=== PATIENT | female | born 1935 | race Caucasian/White ===

== ENCOUNTER 2024-09-25 05:23 | Emergency (ER) | payer OTHER, SELFPAY ==
[2024-09-25 05:25] VITALS: BP 172/93
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
[2024-09-25] MEDS: MOTRIN 400 MG PO (06:34)
[2024-09-25 06:47] VITALS: BMI 28.7
[2024-09-25 07:12] LABS: Urine Albumin Trace (Neg - Trace); Urine Bilirubin Negative (Negative); Urine Character Clear (Clear); Urine Color Yellow; Urine Glucose Negative (Negative); Urine Ketone Negative (Negative); Urine Leukocyte 1+ (Negative); Urine Nitrite Negative (Negative); Urine Occult Blood Negative (Negative); Urine Urobilinogen Negative (Neg - 1+)
[2024-09-25 07:35] LABS: Urine Amorphous Seen; Urine Urothelial Cell 0-2 /LPF (FEW)
[2024-09-25 07:36] LABS: Urine Red Blood Cell 0-2 /HPF (0-2)
[2024-09-25 07:37] LABS: Urine Bacteria Moderate (Negative)
[2024-09-25] MEDS: KEFLEX 500 MG PO (08:47)
== END 2024-09-25 09:03 | disposition home or self-care (01) ==
LOC: EMR 05:23
PROVIDERS: EMERGENCY PHYSICIAN Emergency Medicine; FAMILY PHYSICIAN Family Medicine
DX: M54.50 Low back pain, unspecified (principal); N39.0 Urinary tract infection, site not specified
CPT/HCPCS: 99285; 72110; 73502; 81003; 81015; 87086; 87147; 87186; 93005

== ENCOUNTER 2024-09-28 07:45 | Emergency (ER) | payer OTHER, SELFPAY ==
[2024-09-28 07:46] VITALS: BP 178/104
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
[2024-09-28 08:22] VITALS: BP 134/86
[2024-09-28 09:12] VITALS: BP 155/80
[2024-09-28] MEDS: DECADRON 6 MG IV (09:14)
[2024-09-28] MEDS: TORADOL 15 MG IV (09:15)
[2024-09-28] MEDS: MORPHINE SULFATE 1 MG IV (09:15)
[2024-09-28 09:43] VITALS: BP 155/80
[2024-09-28 10:00] VITALS: BP 165/95
[2024-09-28 10:40] VITALS: BP 165/95; PULSE 66; O2SAT 97
== END 2024-09-28 11:29 | disposition home or self-care (01) ==
LOC: EMR 07:45
PROVIDERS: EMERGENCY PHYSICIAN Emergency Medicine; FAMILY PHYSICIAN Family Medicine
DX: R10.32 Left lower quadrant pain (principal); Z87.81 Personal history of (healed) traumatic fracture; Z87.440 Personal history of urinary (tract) infections
CPT/HCPCS: 96374; 96375; 99284; 72192

== ENCOUNTER 2024-10-02 07:48 | Emergency (ER) | payer OTHER, SELFPAY ==
[2024-10-02 07:54] VITALS: BP 138/85
--- NOTE | 2024-10-02 08:49 | ED.MUSCINJ ---
HPI-Injury
General
Chief Complaint: Musculo-Skeletal Complaint
Source: patient
Exam Limitations: none
Time Seen by Provider: 10/02/24 08:06
History of Present Illness-Injury
Initial Injury comments:
88-year-old female presents from home where she lives with her son who accompanies her as well and states that she has persistent pain to the left groin that radiates down the left leg. The pain travels down into the ankle. The pain is constant
but is made worse with bearing weight. She also notes back pain. No associated bowel or bladder dysfunction. She uses a walker to ambulate at home. She had a CT scan of her pelvis last visit which was negative for acute fractures. She was given
tramadol and Medrol Dosepak. The pain persist.
Phy Exam
Physical Exam
Physical Exam:
General: Well-appearing female no acute respiratory distress
HEENT: Normocephalic atraumatic heart: Regular rate and rhythm
Lungs: Clear no wheeze
Musculoskeletal exam: Patient is slightly tender over the left lumbosacral junction. Good range of motion bilateral lower extremities. No deformities. Passive range of motion of the hips is painless to the left groin. Left groin is nontender
Vascular: 2+ dorsalis pedis pulse bilateral feet
Neurologic: Good sensation bilateral feet
Skin is warm no rash
Injury Course
Orders/Labs/Results
Orders:
Orders
10/02/24 08:45
Diazepam [Valium] 5 mg PO NOW STA
Ibuprofen [Motrin] 600 mg PO NOW STA
MDM/Problems Addressed
Differential Diagnosis Includes:
Patient here for persistent left groin and leg pain. CT of the pelvis done several days ago was negative for acute fracture. Symptoms today consistent more so with radiculopathy. No red flags of cauda equina. Patient is ambulatory but with
discomfort. Son frustrated they are unable to get MRI. No urgent need for MRI through the ER. Will try p.o. Valium and Motrin and attempt to provide something that they can replicate at home for pain relief.
*Critical Care Note
Total Time (30-74mins, 75-104mins- exclusive of procedures): Not Applicable
Update Note
Update Note:
Patient reevaluated after receiving Valium and ibuprofen. She ambulated well with a walker her symptoms are significantly improved. I do suspect radicular symptoms but no emergent need for MRI. Recommend follow-up with family doctor.
ED Attending Note
-
Portions of this chart may have been created with voice recognition software.� Occasional wrong word or��sound alike� substitutions may have occurred due to the inherent limitations of voice recognition software.
Discharge Plan
Departure
Patient Disposition: Home (Routine Discharge)
Date of Disposition: 10/02/24
Time of Disposition: 10:28
Patient with high blood pressure during this ER visit?: No
Discharge Problem:
Acute lumbar radiculopathy
Instructions: Muscle and Bone Pain (DC)
Prescriptions:
New
diazepam [Valium] 5 mg tablet
5 mg PO BID PRN (Reason: muscle spasm) Qty: 12 0RF
No Action
alendronate 70 mg Tablet
70 mg PO QWEEK
sertraline 100 mg Tablet
100 mg PO DAILY
levothyroxine 50 mcg Tablet
50 mcg PO DAILY
valsartan 40 mg Tablet
40 mg PO DAILY
cholecalciferol (vitamin D3) [Vitamin D3] 50 mcg (2,000 unit) Capsule
50 mcg PO DAILY
multivit with min-folic acid [One-A-Day VitaCraves] 200 mcg Tablet,Chewable
1 tab PO DAILY
Rx Instructions:
gummies
PreserVision AREDS 2 Plus MV 200 mcg-15 mcg- 5 mg-1 mg Capsule
1 cap PO DAILY
cephalexin 500 mg capsule
500 mg PO BID 7 Days Qty: 14 0RF
methylprednisolone [Medrol (Horacio)] 4 mg tablets,dose pack
See Rx Instructions .ROUTE .COMPLEX Qty: 21 0RF
Rx Instructions:
for 6 days
tramadol 25 mg tablet
25 mg PO Q6H PRN (Reason: Pain) Qty: 10 0RF
Referrals:
Jonathan Stone MD [Family Provider] -
Activity Restrictions/Additional Instructions:
Continue with the Medrol Dosepak. Use Valium if needed for spasm or pain. Follow-up with your doctor
Interventions
Interventions:
*Risk Screen - Suicide Last Done: 10/02/24 07:54
*General Assessment Last Done: 10/02/24 07:54
*Neglect/Abuse Screening Last Done: 10/02/24 07:54
ED- Fall Risk Assessment Last Done: 10/02/24 09:11
*ED COVID-19 Vaccine History Last Done: 10/02/24 09:11
ED-Musculoskeletal Assessment Last Done: 10/02/24 09:11
Discharge Date and Time
Print Language: LITHUANIAN
[2024-10-02] MEDS: VALIUM 5 MG PO (08:59)
[2024-10-02] MEDS: MOTRIN 600 MG PO (08:59)
[2024-10-02 10:46] VITALS: BP 136/74
== END 2024-10-02 10:57 | disposition home or self-care (01) ==
LOC: EMR 07:48
PROVIDERS: EMERGENCY PHYSICIAN Student in an Organized Health Care Education/Training Program; FAMILY PHYSICIAN Family Medicine
DX: M54.16 Radiculopathy, lumbar region (principal)
CPT/HCPCS: 99283